=== PATIENT | male | born 1995 | race African-American/Black ===

== ENCOUNTER 2021-02-23 22:11 | Emergency (ER) | payer SELFPAY ==
[~2021-02-23] VITALS: Ht 182.9 cm; Wt 92.1 kg
[2021-02-23 23:27] VITALS: BP 132/90
== END 2021-02-24 00:12 | disposition home or self-care (01) ==
LOC: ER 22:58
DX: S62.394A Other fracture of fourth metacarpal bone, right hand, initial encounter for closed fracture (principal); W22.09XA Striking against other stationary object, initial encounter; Y92.008 Other place in unspecified non-institutional (private) residence as the place of occurrence of the external cause